=== PATIENT | female | born 2000 | race Caucasian/White ===

== ENCOUNTER 2023-11-12 12:49 | Outpatient (CLI) | payer OTHER, SELFPAY ==
--- NOTE | ~2023-11-12 | US_ITS ---
EXAMINATION: US OB follow up DATE: 11/12/2023 14:46 INDICATION: Uncertain dating of . TECHNIQUE: Real-time ultrasound of the pelvis was performed. The interpreting radiologist was not pre sent for the study. COMPARISON: None. FINDINGS: There is a single living fetus in variable presentation. The placenta is posterior. The crown rump l ength measures 10.1 cm, which correlates with an estimated gestational age of 16 weeks and 0 days. Fe miguel heart rate is 148 beats per minute (bpm). The amniotic fluid volume is subjectively normal. The d eepest vertical pocket measures 4.5 cm which is within normal limits. There is no free fluid in the p [place]. IMPRESSION: 1. Single living fetus with heart rate of 148 bpm. 2. Gestational age by ultrasound of 16 weeks 0 day(s) +/- 1 week and 3 day(s) with ultrasound estima favio date of delivery (JENNIFER) of 04/28/2024. Reviewed, dictated and finalized at location B. IMPRESSION: 1. Single living fetus with heart rate of 148 bpm. 2. Gestational age by ultrasound of 16 weeks 0 day(s) +/- 1 week and 3 day(s) with ultrasound estimated date of delivery (JENNIFER) of 04/28/2024.
== END 2023-11-12 12:50 | disposition home or self-care (01) ==
PROVIDERS: Visit Provider Advanced Practice Midwife
DX: Z36.87 Encounter for antenatal screening for uncertain dates (principal)
CPT/HCPCS: 76816

== ENCOUNTER 2023-12-13 15:07 | Outpatient (CLI) | payer OTHER, SELFPAY ==
--- NOTE | ~2023-12-13 | US_ITS ---
EXAMINATION: US OB /maternal detail DATE: 12/13/2023 16:34 INDICATION: anatomic survey. TECHNIQUE: Real-time ultrasound of the pelvis was performed. COMPARISON: Ultrasound 11/12/2023 FINDINGS: There is a single living fetus in variable presentation. The placenta is posterior, 4.7 cm from the cervix. heart rate is 143 beats per minute (bpm). The cervical length is greater than 3 cm, whi ch is normal. The amniotic fluid volume is subjectively normal. The following biometric data were obtained: Biparietal diameter (BPD): 4.4 cm; head circumference (HC): 16.7 cm; abdominal circumference (AC): 15 .3 cm; femur length (FL): 2.9 cm. These measurements are concordant. Estimated weight is 310 g +/- 47 g, which correlates with the 14th percentile when 04/28/24 is u sed as estimated date of delivery. As single measurements, these parameters are each equal to the following estimated gestational ages: BPD: 19 weeks 3 days. HC: 19 weeks 3 days. AC: 20 weeks 4 days. FL: 19 weeks 0 days. estimated gestational age based solely on measurements from this exam is 19 weeks 4 days +/- 1 weeks 3 days. The cerebral ventricles, cerebellum, cisterna magna, nuchal fold, lip, and visualized portions of the spine are normal. The heart is normal. The diaphragm, stomach, kidneys, and bladder are normal. Ther e are two umbilical arteries to yield a 3-vessel cord. The cord insertion is normal. IMPRESSION: 1. Single living fetus in variable presentation. 2. Estimated weight is 310 g +/- 47 g, which correlates with the 14th percentile when 04/28/24 is used as estimated date of delivery. 3. Normal anatomic survey. Reviewed, dictated and finalized at location E. IMPRESSION: 1. Single living fetus in variable presentation. 2. Estimated weight is 310 g +/- 47 g, which correlates with the 14th pe rcentile when 04/28/24 is used as estimated date of delivery. 3. Normal anatomic survey.
== END 2023-12-13 15:08 | disposition home or self-care (01) ==
LOC: ANHIMG 15:08
PROVIDERS: Visit Provider Obstetrics & Gynecology Gynecology
DX: Z36.9 Encounter for antenatal screening, unspecified (principal)
CPT/HCPCS: 76805

== ENCOUNTER 2024-03-16 15:37 | Outpatient (CLI) | payer OTHER, SELFPAY ==
--- NOTE | ~2024-03-16 | US_ITS ---
EXAMINATION: US OB follow up DATE: 03/16/2024 16:13 INDICATION: Small for dates. TECHNIQUE: Real-time ultrasound of the pelvis was performed. COMPARISON: Ultrasound 12/13/2023, 11/12/2023 FINDINGS: There is a single living fetus in vertex presentation. The placenta is left posterior. heart r ate is 137 beats per minute (bpm). The amniotic fluid index is 19.9 cm, which is normal. The following biometric data were obtained: Biparietal diameter (BPD): 8.1 cm; head circumference (HC): 31.5 cm; abdominal circumference (AC): 29 .4 cm; femur length (FL): 6.1 cm. These measurements are concordant. Estimated weight is 2104 g +/- 316 g, which correlates with the 21st percentile when 04/28/24 is used as estimated date of delivery. As single measurements, these parameters are each equal to the following estimated gestational ages: BPD: 32 weeks 5 days. HC: 35 weeks 1 days. AC: 33 weeks 3 days. FL: 31 weeks 5 days. estimated gestational age based solely on measurements from this exam is 33 weeks 2 days +/- 2 weeks 2 days. IMPRESSION: 1. Single living fetus in vertex presentation. 2. Estimated weight is 2104 g +/- 316 g, which correlates with the 21st percentile when 4 is used as estimated date of delivery. This date was set by ultrasound on 11/12/2023. Reviewed, dictated and finalized at location A. IMPRESSION: 1. Single living fetus in vertex presentation. 2. Estimated weight is 2104 g +/- 316 g, which correlates with the 21st percentile when 04/28/24 is used as estimated date of delivery. This date was se t by ultrasound on 11/12/2023.
== END 2024-03-16 15:38 | disposition home or self-care (01) ==
LOC: ANHIMG 15:37
PROVIDERS: PCP Advanced Practice Midwife; Visit Provider Advanced Practice Midwife
DX: O36.5930 Maternal care for other known or suspected poor fetal growth, third trimester, not applicable or unspecified (principal); Z3A.00 Weeks of gestation of pregnancy not specified
CPT/HCPCS: 76816

== ENCOUNTER 2024-04-27 11:56 | Inpatient (IN) | payer OTHER, SELFPAY ==
[2024-04-27] VITALS (43 sets, daily range): BP systolic 111–142; BP diastolic 58–120; PULSE 65–163; TEMP 36.2–36.4; O2SAT 96–100; BMI 31.4
[2024-04-27 12:52] LABS: Basophils Percent Auto 0.3 % (0.2-1.2); Eosinophils Absolute Auto 0.2 K/mm3 (0-0.3); Eosinophils Percent Auto 1.9 % (0-4.4); Hematocrit 33.7 % (37.0-47.0); Immature Granulocyte Absolute 0.06 K/mm3 (0.00-0.031); Immature Granulocyte Percent A 0.5 % (0-0.5); Lymphocytes Absolute Auto 2.26 K/mm3 (0.9-3.2); Lymphocytes Percent Auto 19.2 % (18.3-44.2); Mean Corpuscular HGB Conc 32.6 g/dl (32-36); Mean Corpuscular Hemoglobin 27.5 pg (26-34); Mean Corpuscular Volume 84.3 fl (80-100); Mean Platelet Volume 9.6 fl (7.4-10.4); Monocytes Absolute Auto 0.8 K/mm3 (0.1-0.6); Monocytes Percent Auto 6.9 % (2.6-8.5); Neutrophils Absolute Auto 8.4 K/mm3 (1.3-6.7); Neutrophils Percent Auto 71.2 % (45.5-73.1); Platelet Count Result 363 k/mm3 (150-375); Red Cell Distribution Width 14.1 % (11.5-14.5); White Blood Count 11.8 K/mm3 (4.5-10.0)
--- NOTE | 2024-04-27 12:53 | LDADM ---
This patient, Millicent Yanes, was admitted to Labor/Delivery/Recovery 108 on 04/27/24 at 11:56. Plans for labor, pain management and were discussed with patient. Patient/family oriented to hospital policies and general routines including ID bracelet, bed and alarms, visiting hours, pain management, procedures, bathroom and other care routines, personal items, smoking policy, room service/diet and guest tray routines, infant security routines, and visiting hours. Patient/Family are encouraged to report perceived risks to care and to ask questions if they do not understand what they are told or what they should do. See OBIX for further documentation.
--- NOTE | 2024-04-27 13:31 | WPDOBADMIT ---
Obstetrics - Admit Note Admission Note: record reviewed. No pertinent additions to the history and/or any subsequent changes in the physical findings that are not consistent with the expected course of the were found. Additions to the history and/or subsequent changes in the physical findings follow. Admitted from the office after SROM of clear fluid.
--- NOTE | 2024-04-27 13:31 | PM.OBPNLAB ---
Pain Control Date/time seen: 04/27/24 1320 Pain control: tolerating well Assessment and Plan Plan: continuous present management Comments: Spoke with RN. Pt with occasional contractions. No evidence of active labor. Prior discussion competed in the office with pt and S.O. Discussed SROM and option for augmentation or expectant management. Pt preferred expectant management until 12 hours of SROM. Aggreable to starting pitocin if no evidence of active labor by 2100 this evening. No evidence of infection. OK for intermittent monitoring. Discussed plan with Dr. Choi.
[2024-04-27 13:36] LABS: Rapid Plasma Reagin Non-Reactive (NonReactive)
[2024-04-27 13:43] LABS: HIV 1/2 Ab P24 Ag Result Negative (Negative)
--- NOTE | 2024-04-27 17:10 | P.PNOB_ITS ---
Pain Control Date/time seen: 04/27/24 17:10 Pain control: tolerating well Comments: Feeling very occasional contractions Assessment and Plan Comments: No exam at this time. Pt feeling very occasional ctx. Still leaking clear fluid from the vagina. FHTs reassuring. +accels on NST. OK to continue intermittent monitoring. Discussed plan of care. Still desires to wait until 2100 to start pi tocin. If active labor at that time would continue with expectant management. No evidence of infection.
--- NOTE | 2024-04-27 20:39 | WPDANESEPP ---
Anes - Eval Pre Procedure Procedure: labor epidural Date/Time: 04/27/24 20:39 Surgeon: ruperto Preop Diagnosis: pain during labor Pre Op Diagnosis: Leaking Patient Data Age: 24 Gender: F Height: 1.7 m Weight: 91 kg Last Vital Signs Temp 36.2 C L 04/27/24 18:30 Pulse 76 04/27/24 20:16 BP 131/90 04/27/24 20:16 O2 Del Method Room Air 04/27/24 18:46 Allergies Allergy/AdvReac Type Severity Reaction Status Date / Time No Known Allergies Allergy Verified 03/30/24 13:15 Home Medications Medication Instructions Recorded Confirmed Type escitalopram oxalate 10 mg tablet 15 mg PO DAILY 03/30/24 03/30/24 History (Lexapro) prenat.vits,gabino,kvi-bfah-anain 1 tablet PO DAILY 03/30/24 04/27/24 History Laboratory Tests 04/27/24 12:30 WBC 11.8 H K/mm3 (4.5-10.0) RBC 4.00 L M/mm3 (4.2-5.4) Hgb 11.0 L g/dL (12.0-15.0) Hct 33.7 L % (37.0-47.0) MCV 84.3 fl (80-100) MCH 27.5 pg (26-34) MCHC 32.6 g/dl (32-36) RDW 14.1 % (11.5-14.5) Plt Count 363 k/mm3 (150-375) MPV 9.6 fl (7.4-10.4) Immature Gran % (Auto) 0.5 % (0-0.5) Neut % (Auto) 71.2 % (45.5-73.1) Lymph % (Auto) 19.2 % (18.3-44.2) [place] % (Auto) 6.9 % (2.6-8.5) Eos % (Auto) 1.9 % (0-4.4) Baso % (Auto) 0.3 % (0.2-1.2) Lymph # (Auto) 2.26 K/mm3 (0.9-3.2) [place] # (Auto) 0.8 H K/mm3 (0.1-0.6) Eos # (Auto) 0.2 K/mm3 (0-0.3) Baso # (Auto) 0.0 K/mm3 (0.0-0.1) Abs Immat Gran (auto) 0.06 H K/mm3 (0.00-0.031) Absolute Neuts (auto) 8.4 H K/mm3 (1.3-6.7) Absolute Nucleated RBC 0.000 K/mm3 (0.0-0.012) Nucleated RBC % 0.0 % (0.0-0.2) RPR Non-reactive (NonReactive) HIV 1&2 Ab/P24 Ag 4thGn Negative (Negative) Blood Type A Positive Antibody Screen Negative Patient hx anesthesia problems: none Family hx anesthesia problems: none Results Review: All pre-operative results and documents have been reviewed as part of the pre-operative evaluation. [facility] Past Medical History Medical History (Updated 04/27/24 @ 20:40 by Caroline Clement CRNA) Anxiety Depression IUP (intrauterine ), incidental Family History Family History (Updated 03/30/24 @ 13:18 by Mala Mackenzie RN) Other Patient denies significant medical history Social History Social History Smoking status: Current every day smoker Tobacco type: cigarettes Second hand tobacco smoke exposure: Yes Substance use: never Do You Feel Safe in your Home?: Yes Lack of Transportation: No Lack of Food: Never True Current Housing: I Have Housing Concerned About Future Housing: No Difficulty Paying Gas/Electric Bills: No Difficulty Paying for Meds: No Currently Unemployed: No Education: High School Diploma/GED Difficulty w/ Childcare or Family Care: No Spiritual care concerns: No Exam Day of Procedure 04/27/24 20:39
[2024-04-27] MEDS: OXYTOCIN 30 UNITS/NS 500 ML 30 UNITS/500 ML BAG IV CONT (22:14)
[2024-04-27] MEDS: LACTATED RINGERS 1,000 ML 125 ML IV CONT (22:14)
[2024-04-28] VITALS (148 sets, daily range): BP systolic 86–143; BP diastolic 47–90; PULSE 62–131; RESP 16–20; TEMP 36.2–37.2; O2SAT 94–100
[2024-04-28] MEDS: LACTATED RINGERS 1,000 ML 125 ML IV CONT ×2 (00:56→06:21)
[2024-04-28] MEDS: ONDANSETRON INJ 4 MG/2 ML VIAL IV PUSH ×2 (01:54→08:34)
[2024-04-28] MEDS: AMPICILLIN 2 GM/NS 100 ML 2 GM/100 ML BAG IVPB (03:31)
[2024-04-28] MEDS: AMPICILLIN 1 GM/NS 50 ML 1 GM/50 ML BAG IVPB (07:32)
--- NOTE | 2024-04-28 07:55 | PM.OBPNLAB ---
Pain Control Date/time seen: 04/28/24 07:55 Pain control: tolerating well and epidural Pelvic Exam Comments: No CNM exam at this time. Last RN exam 3 cm. Contractions Contraction pattern: Irregular (dysfunctional pattern) Contraction phase: Contraction Contraction intensity: Strong/Firm Status status: Category l Assessment and Plan Pitocin rate (mU/min): 18 Assessment: induction ongoing Plan: continuous present management Comments: Repositioned pt to far right side with top (Left) leg supported by peanut ball (runners position). Pt reports feeling very comfortable in that position. Recommend 20-30 minutes on right side and then turning with assistance. Recommended positions such as hands and knees to better facilitate positioning due to dysfunctional labor pattern. Suspect asynclitic presentation. Dr. Choi updated. IUPC with adequate MVUs.
[2024-04-28] MEDS: miSOPROStol 200 MCG TABLET 800 MCG RECTAL (09:41)
--- NOTE | 2024-04-28 09:49 | PM.OBPRVD ---
OB - Vaginal Delivery Note Procedure Delivery date: 04/28/24 Events: Other (Prolonged rupture of membranes) Delivery augmentation: Rupture of Membranes Delivery monitor: External FHT and Internal Uterine Route of delivery: Episiotomy description: None Laceration Description: Periurethral (bilateral, superficial. Hemostatic) and Perineal - 1st Degree Delivery repair: vicryl Specimen: No Quantitative Blood Loss (ml): 400 Anesthesia type: Epidural Disposition: Floor Complications: No immediate complications Narrative: Millicent was Admitted from the office after spontaneous rupture membranes. She was given the option for immediate augmentation with Pitocin or expectant management and she chose expectant management. After no evidence of active labor, Pitocin was started. She made very slow change to 3 cm however she made very rapid change to complete dilation after that point. She pushed with contractions and brought the head to a complete crown. After the delivery of the head, fair restitution was observed and a loose nuchal cord and compound hand presentation were identified. She smoothly deliver both the anterior and posterior shoulders followed by the remainder of the . The nuchal cord was reduced. The baby was placed on the maternal abdomen and dried and stimulated by the nursery staff. After 1 minute of life, cord was doubly clamped and cut. Cord blood, cord gases, and cord segment were obtained. A first-degree perineal lacerations repaired in usual fashion. Bilateral periurethral lacerations were hemostatic and did not require repair. The uterus had 1 episode of acne but firmed with massage. 800 mcg was given GA to prevent future at knee. After this point, there was excellent hemostasis and uterine tone. All delivery counts correct. Mother and baby skin to skin in the delivery room. [place] Baby Date of : 04/28/24 Time of : 09:17 Gestational Age by Date: 40 gender: Female Weight (pounds): 0 (unavailable at the time of note) presentation: vertex position: Left Occiput Anterior Placenta delivery description: Spontaneous Cord Vessel Description: 3 Vessels, Nuchal Cord and Delayed Cord Clamping score one minute: 9 score five minutes: 9
--- NOTE | 2024-04-28 09:58 | PM.OBDSVD ---
DS: Admitting Diagnosis Discharge Date 04/30/24 Admitting Diagnosis 24 y.o. at term SROM Rubella Non-Immune Anxiety and Depression DS: Discharge Diagnosis Discharge Diagnosis (1) (normal spontaneous vaginal delivery): Code(s): O80 - Encounter for full-term uncomplicated delivery Status: Acute (2) Intends to breastfeed: Status: Acute (3) Rubella non-immune status, delivered, current hospitalization: Code(s): O99.892 - Other specified diseases and conditions complicating childbirth; Z28.39 - Other underimmunization status Status: Acute (4) Anxiety and depression: Code(s): F41.9 - Anxiety disorder, unspecified; F32.A - Depression, unspecified Status: Acute OB - DS: Summary Hospital Course Hospital Course: Uncomplicated OB Procedures : Ultrasound OB Procedures Intrapartum: Spontaneous Vag Delivery and Other (IV antibiotics for prolonged ROM) OB Procedures: : Rubella lg Peripartum Data Infant Delivery Method: Natural Vaginal Laceration Description: Periurethral (bilateral, superficial. Hemostatic) and Perineal - 1st Degree Episiotomy description: None complications: none Time Spent with Patient Time attestation: Total time spent providing and/or coordinating discharge services: DS: Data Data Completed and Pending Labs on day of discharge: Labs from last 24 hours 04/27/24 12:30 WBC 11.8 H RBC 4.00 L Hgb 11.0 L Hct 33.7 L MCV 84.3 MCH 27.5 MCHC 32.6 RDW 14.1 Plt Count 363 MPV 9.6 Immature Gran % (Auto) 0.5 Neut % (Auto) 71.2 Lymph % (Auto) 19.2 [place] % (Auto) 6.9 Eos % (Auto) 1.9 Baso % (Auto) 0.3 Lymph # (Auto) 2.26 [place] # (Auto) 0.8 H Eos # (Auto) 0.2 Baso # (Auto) 0.0 Abs Immat Gran (auto) 0.06 H Absolute Neuts (auto) 8.4 H Absolute Nucleated RBC 0.000 Nucleated RBC % 0.0 RPR Non-reactive HIV 1&2 Ab/P24 Ag 4thGn Negative Blood Type A Positive Antibody Screen Negative Discharge Plan Discharge Attending physician on discharge: Shaylee Choi Consulting providers: Corina Carrero; Caroline Clement Discharging Clinician: Shaylee Choi Anticipated Discharge Date/Time: 04/30/24 10:00 Patient Disposition: Home, Self-Care Activity: may shower and pelvic rest Diet: as tolerated and regular Discharge Instructions: Continue taking your vitamin and any other supplements as previously directed (Examples: Iron, Vitamin D). You may take Tylenol 1000mg over the counter every 6 hours as needed for pain. Do not exceed 4000mg of Tylenol daily. You may continue using tucks pads and dermoplast spray if needed for a few more days. Depression Notify provider for signs or symptoms. These may include- Feelings: Feeling anxious, angry, hopeless, guilt, or loss of interest/pleasure in activities you normally enjoy. Mood swings or panic attacks. General: Extreme fatigue, loss of your appetite, feeling restless. Crying excessively, irritability, insomnia Psychological: Lack of concentration, depression or fear, unwanted thoughts Weight: Significant gain or loss Safety: Thoughts of harming yourself or your baby. Education: Mom and Baby Guide Given to: Mother Follow-Up: Call your delivering provider's office for an appointment to be seen in: 6 Weeks Mom and baby should come to the [facility] for the follow-up appointment. Appointment Date/Time: May 01, 2024 at 12:30 pm What to expect at your follow-up visit: Physical Assessment Call [phone] if you are unable to keep your appointment time. BREAST CARE: * Wear a snug supportive bra. * For engorgement discomfort: Breast Feeding: * Apply warm moist washcloths * Express milk as needed to relieve engorgement * Wear loose clothing * For sore nipples: * Identify correct
[2024-04-28] MEDS: OXYTOCIN 30 UNITS/NS 500 ML 30 UNITS/500 ML BAG 125 UNITS IV CONT (10:00)
[2024-04-28] MEDS: WITCH HAZEL 40 PADS 1 PAD TOPICAL (12:00)
[2024-04-28] MEDS: BENZOCAINE 20% AER SPR (*SP) 56 GM CAN 1 SPRAY TOPICAL (12:00)
--- NOTE | 2024-04-28 12:05 | OBPPTRN ---
Patient transferred to post room # 281 via wheelchair. Support person present. Oriented to unit, room, information board, rooming in, admission packet and security measures. Patient verbalizes understanding.
--- NOTE | 2024-04-28 17:25 | PC.NURSE ---
1320: had a low blood glucose and received gel. We attempted to latch baby and mom expressed a few drops of colostrum onto baby's lips. needs formula supplementation due to low glucose so primary RN notified that we attempted but did not breastfeed successfully. 1725: Consulted with patient to assess needs related to . Discussed with mother her successes, concerns and any questions she has. We reviewed working with the , deep latch, good positioning. Encouraged understanding the benefits of skin to skin, responding to feeding cues, frequencies of feeding 8-12 times in 24 hours (approximately 2-3 hours). Baby's blood sugar was good before this feeding. Reviewed positioning and alignment, supporting breast, off-centered (asymmetrical latch) and leading with the chin with big, open, wide gape. Infant was unable to latch for more than two sucks before falling asleep. She gave more effort at this feeding than the last attempt. The was [not able] to maintain latch due to sleepiness. Mother agrees to keep baby skin to skin and try again in a half hour. Mother voiced understanding of the education shared, to call for assistance if the does not latch or if there is discomfort with . Reported to the Primary RN.
[2024-04-29 03:37] VITALS: BP 118/80; PULSE 72; RESP 20; TEMP 36.8; O2SAT 100
[2024-04-29 04:43] LABS: Hematocrit 27.4 % (37.0-47.0); Hemoglobin 8.8 g/dL (12.0-15.0)
--- NOTE | 2024-04-29 07:20 | P.PNOB_ITS ---
OB - PN: Subj Subjective Date/time seen: 04/29/24 07:15 Interval history: Post Day 1 from . Doing well. Urinating without difficulty. Denies passing any large clots. Denies dizziness with ambulating. Tolerating po food and fluids. Bonding with . Attempting to breastfeed. Patient comments: pain well controlled baby status: doing well (issues with latch. Pt pumping. ) feeding status: pumping and storing OB - PN: Obj Data Labs 04/29/24 03:40 Labs: Laboratory Results - last 24 hr 04/29/24 03:40 Hgb 8.8 L Hct 27.4 L OB - PN A/P Assessment and Plan (1) (normal spontaneous vaginal delivery): Code(s): O80 - Encounter for full-term uncomplicated delivery Status: Acute (2) Intends to breastfeed: Status: Acute (3) Rubella non-immune status, delivered, current hospitalization: Code(s): O99.892 - Other specified diseases and conditions complicating childbirth; Z 28.39 - Other underimmunization status Status: Acute Assessment and Plan: MMR prior to DC (4) Anxiety and depression: Code(s): F41.9 - Anxiety disorder, unspecified; F32.A - Depression, unspecified Status: Acute Plan day: 1 Plan: routine care Time Spent With Patient Time: Total time spent is greater than 50% in coordination of care (as documented) at patient's floor/unit and/or counseling patient: Review of Systems Review of Systems: All systems reviewed & are unremarkable except as noted in HPI and below Exam Narrative: Alert and oriented. Mood is pleasant and cooperative. Perineum with minimal edema. Fundus firm and below umbilicus. Const: General: cooperative, healthy appearing, no acute distress and alert Orientation/consciousness: patient oriented x3 Limitations: no limitations Resp: Effort & Inspection: normal respiratory effort and able to speak in complete sentences Cardio: Rate: regular rate GI: Inspection: normal to inspection GI Palp: Yes Soft to palpation : General: Yes bladder normal to palpation External Female Exam: other (lochia WNL) Bimanual exam- vagina & uterus: bladder normal to palpation Other: Fundus firm and below U Skin: General skin exam: normal color and no rashes or lesions noted Neuro: General: patient oriented x3 and moves all extremities Cognition (Neuro): normal cognition Speech: normal speech Sensory Exam: normal sensation Extrem: General: normal to inspection and no calf tenderness Psych: Appearance: grossly normal Mental Status: mental status grossly normal Affect: normal affect Thought process: Normal thought process present
[2024-04-29 07:50] VITALS: BP 128/76; PULSE 71; RESP 16; TEMP 36.2; O2SAT 100
[2024-04-29 08:00] VITALS: PULSE 71; RESP 16; O2SAT 100
[2024-04-29] MEDS: MULTIVIT/MIN/PREN/FOL AC/IRON TABLET 1 TAB PO (08:49)
[2024-04-29] MEDS: ESCITALOPRAM OXALATE 5 MG TABLET 15 MG PO (08:49)
[2024-04-29] MEDS: POLYSACCHARIDE IRON COMPLEX 150 MG CAPSULE PO ×2 (08:49→16:58)
[2024-04-29] MEDS: DOCUSATE SODIUM 100 MG CAPSULE PO ×2 (08:49→16:58)
--- NOTE | 2024-04-29 13:54 | PC.NURSE ---
1245. is greater than 24 hours old and has not feeding appropriately at the breast or taking in sufficient volumes of milk each feed. Feeding plan initiated per Dr Del Castillo for infant with a provider order for formula supplementation, mother is to supplement a minium of 10-15 ml after each attempt. Mother is instructed to pump (with a hospital pump or her pump from home) after every or attempt. Mother should only attempt for 10-15 minutes at breast before moving on to supplementation. Support person can feed baby 15ml of pumped milk or formula while mother is pumping. Instructed parents on keeping breastmilk at the bedside for up to 4 hours, or until the next feeding. Patient was given breastmilk storage bottles, patient labels, and instructed to date and time all pumped milk. Breast pump instructions given on cleaning, care, usage, that there should be no pain, pumping schedule for milk production, collection, and storage of human milk. Patient was assessed for correct placement, flange size, to pump for adequate milk production every 3 hours (8 times in 24 hours) 1-2 times at night. Mom reported she was able to bring baby to the breast and feed for about 5 min and that was all for this feed. The infants grandma was supplementing baby with formula on the couch at this time. RN reviewed paced bottle feeding with mom and her support persons, as well as burping infant. Infant was able to take 10 ml of formula and had a medium sized spit up. Moms questions answered and she knows to call phone for further assistance with future feeds.
[2024-04-29 18:32] VITALS: BP 134/83; PULSE 87; RESP 12; TEMP 36.8; O2SAT 98
[2024-04-30 07:25] VITALS: BP 125/74; PULSE 74; RESP 16; TEMP 36.6; O2SAT 100
--- NOTE | 2024-04-30 07:49 | P.PNOB_ITS ---
OB - PN: Subj Subjective Date/time seen: 04/30/24 07:49 Interval history: Patient comments: no complaints and pain well controlled baby status: doing well OB - PN: Obj Data Labs 04/29/24 03:40 OB - PN A/P Plan day: 2 Plan: routine care, discharge home, follow up 6 weeks and other (joaquin castanon for bc) Time Spent With Patient Time: Total time spent is greater than 50% in coordination of care (as documented) at patient's floor/unit and/or counseling patient: Exam : Bimanual exam- vagina & uterus: other (Uterus firm, nt @U)
[2024-04-30] MEDS: MULTIVIT/MIN/PREN/FOL AC/IRON TABLET 1 TAB PO (08:30)
[2024-04-30] MEDS: POLYSACCHARIDE IRON COMPLEX 150 MG CAPSULE PO (08:30)
[2024-04-30] MEDS: ESCITALOPRAM OXALATE 5 MG TABLET 15 MG PO (08:31)
[2024-04-30] MEDS: MEASLES,MUMPS,RUBELLA VACCINE 0.5 ML VIAL SUB-Q (08:32)
[2024-04-30] MEDS: DOCUSATE SODIUM 100 MG CAPSULE PO (08:37)
--- NOTE | 2024-04-30 09:00 | PC.NURSE ---
Introductions were made. Mother verbalizes she is able to independently latch with appropriate positioning and alignment. She denies any nipple discomfort and is responsively . is currently meeting outcomes for weight, output, jaundice, blood sugar and feeding frequencies of 8-12 times in 24 hours. Mother declines any additional assistance or education at this time. Mother is encouraged to call for assistance if her infant does not latch, pain with latching, questions or concerns. Mother voiced understanding of information shared along with the mom/baby guide for an additional resource. Reported to the Primary RN.
--- NOTE | 2024-04-30 12:33 | PC.NURSE ---
Patient viewed the discharge video Mother & Baby Care, The First Two Weeks . Patient was given the opportunity and encouraged to ask questions. Patient verbalized understanding of information shared and has been given the mother/baby guide for home reference.
[2024-05-01 13:08] VITALS: BP 126/88; PULSE 95; RESP 18; TEMP 37; O2SAT 100
== END 2024-04-30 13:40 | disposition home or self-care (01) | DRG 560 ==
LOC: ANHLDR 04-28 10:01 → ANHOB2 04-30 12:19 → ANHLDR 05-01 10:45 → ANHOB2 05-01 10:45
PROVIDERS: Admitting Provider Obstetrics & Gynecology Gynecology; PCP Advanced Practice Midwife; Visit Provider Obstetrics & Gynecology Gynecology
DX: O42.92 Full-term premature rupture of membranes, unspecified as to length of time between rupture and onset of labor (principal); O71.82 Other specified trauma to perineum and vulva; O70.0 First degree perineal laceration during delivery; O69.81X0 Labor and delivery complicated by cord around neck, without compression, not applicable or unspecified; O99.344 Other mental disorders complicating childbirth; F41.8 Other specified anxiety disorders; Z3A.40 40 weeks gestation of pregnancy; Z37.0 Single live birth
CPT/HCPCS: 36415; 85014; 85018; 85025; 86592; 86703; 86850; 86900; 86901; 90710; A9270; G0432; J0290; J2405; J2590; J2795; J7120